=== PATIENT | female | born 1970 | race Caucasian/White ===

== ENCOUNTER → 2016-10-25 | Outpatient (CLI) | payer BC ==
[~2016-10-25] MED LIST: Tramadol PO
[2016-10-25 12:44] LABS: Basophils # (auto) 0 uL; Basophils % (auto) 0.4 % (0.0-2.0); CONDITION Y; Eosinophils # (auto) 0 uL; Eosinophils % (auto) 0.7 % (0.0-7.0); Hematocrit 40.5 % (36.0-46.0); Hemoglobin 13.8 g/dL (12.2-16.2); Lymphocytes # (auto) 1.8 uL; Mean Corpuscular Hemoglobin 30.1 pg (28.0-32.0); Mean Corpuscular Volume 88.7 fL (80.0-100.0); Mean Platelet Volume 6.8 fL (7.4-10.4); Monocytes # (auto) 0.3 uL; Monocytes % (auto) 5.8 % (0.0-12.0); Neutrophils # (auto) 3.5 uL; Neutrophils % (auto) 62.1 % (37.0-80.0); Platelet Count (auto) 439 10^3/uL (140-450); Red Cell Distribution Width 12.9 % (11.6-16.0); White Blood Cell 5.7 10^3/uL (4.4-10.8)
[2016-10-25 13:06] LABS: Urine Bilirubin Negative (Negative); Urine Blood Negative /uL (Negative); Urine Color Yellow (Yellow); Urine Glucose Normal (Normal); Urine Ketone Negative (Negative); Urine Nitrite Negative (Negative); Urine RBC <1 /hpf (0 - 4); Urine Squamous Epithelial Cell FEW /hpf (<5); Urine Urobilinogen Normal (Negative)
[2016-10-25 13:13] LABS: Albumin 3.9 g/dL (3.4-5.0); BUN/Creatinine Ratio 15.7; Bilirubin, Total 0.8 mg/dL (0.2-1.0); Calcium 8.4 mg/dL (8.5-10.1); Potassium 3.9 mmol/L (3.5-5.1); Total Protein 6.7 g/dL (6.4-8.2)
== END | disposition home or self-care (01) ==
LOC: LAB 12:12
PROVIDERS: ATTEND Family Medicine
DX: E78.5 Hyperlipidemia, unspecified (principal)
CPT/HCPCS: 36415; 80053; 80061; 81001; 82306; 82607; 83036; 84443; 85025

== ENCOUNTER → 2018-08-25 | Outpatient (CLI) | payer BC ==
[2018-08-25 09:50] LABS: Basophils # (auto) 0 uL; Basophils % (auto) 0.6 % (0.0-2.0); Eosinophils # (auto) 0 uL; Eosinophils % (auto) 0.6 % (0.0-7.0); Hematocrit 46.2 % (36.0-46.0); Hemoglobin 15.5 g/dL (12.2-16.2); Lymphocytes # (auto) 2.1 uL; Lymphocytes % (auto) 27.4 % (10.0-50.0); Mean Corpuscular Hemoglobin 29.8 pg (28.0-32.0); Mean Corpuscular Hgb Conc. 33.5 g/dL (32.0-36.0); Mean Corpuscular Volume 88.9 fL (80.0-100.0); Monocytes # (auto) 0.4 uL; Monocytes % (auto) 5.3 % (0.0-12.0); Neutrophils % (auto) 66.1 % (37.0-80.0); Nucleated Red Blood Cells % 0.1 %; Platelet Count (auto) 390 10^3/uL (140-450); Red Cell Distribution Width 13.4 % (11.8-14.3); White Blood Cell 7.6 10^3/uL (4.4-10.8)
[2018-08-25 09:54] LABS: Urine Blood Negative /uL (Negative); Urine Specific Gravity 1.009 (1.001-1.035)
[2018-08-25 10:10] LABS: Potassium 4.1 mmol/L (3.5-5.1)
[2018-08-25 10:18] LABS: Albumin 4.3 g/dL (3.4-5.0); BUN/Creatinine Ratio 15.7; Bilirubin, Total 0.9 mg/dL (0.2-1.0); Calcium 8.9 mg/dL (8.5-10.1); Total Protein 7.5 g/dL (6.4-8.2)
== END | disposition home or self-care (01) ==
LOC: LAB 09:10
PROVIDERS: ATTEND Family Medicine
DX: E78.49 Other hyperlipidemia (principal); E66.3 Overweight; E55.9 Vitamin D deficiency, unspecified; Z86.69 Personal history of other diseases of the nervous system and sense organs
CPT/HCPCS: 36415; 80053; 80061; 81003; 82306; 82607; 84443; 85025

== ENCOUNTER → 2018-09-06 | Outpatient (CLI) | payer BC ==
[2018-09-06 10:40] LABS: Follicle Stimulating Hormone 9.77 IU/L (SEE BELOW); Leuteinizing Hormone 4.1 IU/L
== END | disposition home or self-care (01) ==
LOC: LAB 09:16
PROVIDERS: ATTEND Obstetrics & Gynecology
DX: N95.1 Menopausal and female climacteric states (principal)
CPT/HCPCS: 36415; 82670; 83001; 83002; 84403; 84443

== ENCOUNTER → 2020-01-30 | Outpatient (CLI) | payer BC ==
[2020-01-30 10:20] LABS: Follicle Stimulating Hormone 10.61 IU/L (SEE BELOW); Leuteinizing Hormone 5.4 IU/L
[2020-01-30 10:21] LABS: Basophils # (auto) 0 10 ^3/uL (0-0.2); Basophils % (auto) 0.2 % (0.0-2.0); Eosinophils # (auto) 0.1 10 ^3/uL (0-0.8); Eosinophils % (auto) 1.4 % (0.0-7.0); Hematocrit 41.3 % (36.0-46.0); Hemoglobin 14.4 g/dL (12.2-16.2); Lymphocytes # (auto) 1.6 10 ^3/uL (0.4-5.4); Lymphocytes % (auto) 25.5 % (10.0-50.0); Mean Corpuscular Hemoglobin 31.2 pg (28.0-32.0); Mean Corpuscular Hgb Conc. 34.8 g/dL (32.0-36.0); Mean Corpuscular Volume 89.7 fL (80.0-100.0); Monocytes # (auto) 0.4 10 ^3/uL (0-1.3); Monocytes % (auto) 6.4 % (0.0-12.0); Neutrophils # (auto) 4.2 10 ^3/uL (1.6-8.6); Neutrophils % (auto) 66.5 % (37.0-80.0); Platelet Count (auto) 371 10^3/uL (140-450); Red Blood Cells 4.61 10^6/uL (4.0-5.20); Red Cell Distribution Width 12.9 % (11.8-14.3); White Blood Cell 6.3 10^3/uL (4.4-10.8)
== END | disposition home or self-care (01) ==
LOC: LAB 09:32
PROVIDERS: ATTEND Obstetrics & Gynecology
DX: N95.1 Menopausal and female climacteric states (principal); Z87.59 Personal history of other complications of pregnancy, childbirth and the puerperium
CPT/HCPCS: 36415; 82672; 83001; 83002; 84403; 84443; 85025

== ENCOUNTER → 2020-06-12 | Outpatient (CLI) | payer BC ==
[2020-06-12 10:25] LABS: Basophils # (auto) 0 10 ^3/uL (0-0.2); Basophils % (auto) 0.2 % (0.0-2.0); Eosinophils # (auto) 0 10 ^3/uL (0-0.8); Eosinophils % (auto) 0.6 % (0.0-7.0); Hematocrit 41.2 % (36.0-46.0); Hemoglobin 14.3 g/dL (12.2-16.2); Lymphocytes % (auto) 30.2 % (10.0-50.0); Mean Corpuscular Hemoglobin 30.8 pg (28.0-32.0); Mean Corpuscular Hgb Conc. 34.6 g/dL (32.0-36.0); Monocytes # (auto) 0.3 10 ^3/uL (0-1.3); Monocytes % (auto) 4.8 % (0.0-12.0); Neutrophils # (auto) 4.3 10 ^3/uL (1.6-8.6); Neutrophils % (auto) 64.2 % (37.0-80.0); Nucleated Red Blood Cells % 0.1 %; Platelet Count (auto) 416 10^3/uL (140-450); Red Blood Cells 4.63 10^6/uL (4.0-5.20); Red Cell Distribution Width 12.6 % (11.8-14.3); Urine Bacteria NONE SEEN /hpf (None Seen); Urine Blood TRACE /uL (Negative); Urine Specific Gravity 1.015 (1.001-1.035); Urine WBC <1 /hpf (0 - 5); White Blood Cell 6.6 10^3/uL (4.4-10.8)
[2020-06-12 10:52] LABS: Potassium 4.4 mmol/L (3.5-5.1)
[2020-06-12 10:59] LABS: BUN/Creatinine Ratio 17.5; Bilirubin, Total 0.6 mg/dL (0.2-1.0); Calcium 8.3 mg/dL (8.5-10.1); Total Protein 7.4 g/dL (6.4-8.2)
== END | disposition home or self-care (01) ==
LOC: LAB 10:00
PROVIDERS: ATTEND Family Medicine
DX: E66.3 Overweight (principal); E78.49 Other hyperlipidemia; N92.6 Irregular menstruation, unspecified; G43.009 Migraine without aura, not intractable, without status migrainosus
CPT/HCPCS: 36415; 80053; 80061; 81001; 82306; 85025

== ENCOUNTER → 2021-06-03 | Outpatient (CLI) | payer BC ==
[2021-06-03 10:42] LABS: Basophils # (auto) 0 10 ^3/uL (0-0.2); Basophils % (auto) 0.3 % (0.0-2.0); Eosinophils # (auto) 0.1 10 ^3/uL (0-0.8); Eosinophils % (auto) 0.9 % (0.0-7.0); Hematocrit 41.1 % (36.0-46.0); Hemoglobin 14.3 g/dL (12.2-16.2); Lymphocytes # (auto) 1.9 10 ^3/uL (0.4-5.4); Lymphocytes % (auto) 27.5 % (10.0-50.0); Mean Corpuscular Hemoglobin 31.1 pg (28.0-32.0); Mean Corpuscular Hgb Conc. 34.7 g/dL (32.0-36.0); Mean Corpuscular Volume 89.5 fL (80.0-100.0); Monocytes # (auto) 0.4 10 ^3/uL (0-1.3); Monocytes % (auto) 6.1 % (0.0-12.0); Neutrophils # (auto) 4.5 10 ^3/uL (1.6-8.6); Neutrophils % (auto) 65.2 % (37.0-80.0); Nucleated Red Blood Cells % 0.1 %; Potassium 4.3 mmol/L (3.5-5.1); Red Blood Cells 4.59 10^6/uL (4.0-5.20); Red Cell Distribution Width 12.9 % (11.8-14.3); White Blood Cell 6.8 10^3/uL (4.4-10.8)
[2021-06-03 10:53] LABS: Albumin 3.8 g/dL (3.4-5.0); BUN/Creatinine Ratio 19.1; Bilirubin, Total 0.6 mg/dL (0.2-1.0); Calcium 8.9 mg/dL (8.5-10.1); Total Protein 6.9 g/dL (6.4-8.2)
== END | disposition home or self-care (01) ==
LOC: LAB 09:10
PROVIDERS: ATTEND Student in an Organized Health Care Education/Training Program
DX: G43.709 Chronic migraine without aura, not intractable, without status migrainosus (principal); E78.49 Other hyperlipidemia; E55.9 Vitamin D deficiency, unspecified; H18.602 Keratoconus, unspecified, left eye; H33.21 Serous retinal detachment, right eye
CPT/HCPCS: 36415; 80053; 80061; 82306; 84443; 85025

== ENCOUNTER → 2021-06-30 | Outpatient (CLI) | payer BC | END | disposition home or self-care (01) | LOC: LAB 10:32 | PROVIDERS: ATTEND Student in an Organized Health Care Education/Training Program | DX: Z12.11 Encounter for screening for malignant neoplasm of colon (principal) | CPT/HCPCS: 82274 ==

== ENCOUNTER → 2021-09-17 | Day surgery (SDC) | payer BC ==
[2021-09-15 14:35] LABS: Basophils # (auto) 0 10 ^3/uL (0-0.2); Basophils % (auto) 0.3 % (0.0-2.0); Eosinophils # (auto) 0 10 ^3/uL (0-0.8); Eosinophils % (auto) 0.5 % (0.0-7.0); Hematocrit 41.4 % (36.0-46.0); Hemoglobin 13.9 g/dL (12.2-16.2); Lymphocytes # (auto) 1.8 10 ^3/uL (0.4-5.4); Lymphocytes % (auto) 25.1 % (10.0-50.0); Mean Corpuscular Hemoglobin 30.4 pg (28.0-32.0); Mean Corpuscular Hgb Conc. 33.7 g/dL (32.0-36.0); Mean Corpuscular Volume 90.3 fL (80.0-100.0); Monocytes # (auto) 0.4 10 ^3/uL (0-1.3); Monocytes % (auto) 6.1 % (0.0-12.0); Neutrophils # (auto) 4.8 10 ^3/uL (1.6-8.6); Red Blood Cells 4.58 10^6/uL (4.0-5.20); Red Cell Distribution Width 12.6 % (11.8-14.3)
[2021-09-15 14:47] LABS: Urine Amorphous Crystal FEW /hpf (None Seen); Urine Bacteria FEW /hpf (None Seen); Urine Blood Negative /uL (Negative); Urine Mucus FEW (None Seen); Urine Specific Gravity 1.021 (1.001-1.035); Urine WBC 12 /hpf (0 - 5)
[2021-09-15 14:53] LABS: Partial Thromboplastin Time 30.7 sec (23.6-33.0)
[2021-09-15 15:11] LABS: Calcium 8.8 mg/dL (8.5-10.1); Potassium 4.1 mmol/L (3.5-5.1)
[2021-09-15 15:17] LABS: Albumin 3.8 g/dL (3.4-5.0); BUN/Creatinine Ratio 22.2; Bilirubin, Total 0.5 mg/dL (0.2-1.0); Total Protein 7.2 g/dL (6.4-8.2)
[~2021-09-17] VITALS: Ht 157.5 cm; Wt 70.3 kg
[~2021-09-17] MED LIST changes: +BUPIVACAINE W/ EPINEPH 0.25% INJ 50ML MDV ONE; +GABA300C10 PO; +GLYCOPYRROLATE 0.2 MG/ML 1ML VIAL ONE; +HYDROmorphone HCL 2 MG/ML VL/or syr ONE; +IBUP400T22 PO; +KETAMINE HCL 10 ML ONE; +LIDOCAINE W/ EPINEPHRINE 2% INJ 20ML VIAL ONE; +MIDAZOLAM HCL 2MG/2ML 2ml VIAL (1mg/ml) ONE; +MORPHINE SULF PF 5 MG/10 ML VIAL ONE; +ONDANSETRON HCL 4 MG/2 ML VIAL IV PRN; +ONDANSETRON HCL 4 MG/2 ML VIAL ONE; +PROPOFOL 10 MG/ML 20 ML IV ONE; +RIZA10TA22 OR; +ROSU10TA16 PO; -Tramadol PO; +VANCOMYCIN HCL 1000 MG VL ONE; +ceFAZolin 1GM/50ML 100 ML IV ONE; +fentaNYL CITRATE 100 MCG/2 ML VL ONE
[2021-09-17] MEDS: HYDROmorphone HCL 2 MG/ML VL/or syr IV PRN ×2 (10:58→11:08)
[2021-09-17 11:35] VITALS: BP 132/82
== END | disposition home or self-care (01) ==
LOC: SUR 07:15
PROVIDERS: ATTEND Anesthesiology Pain Medicine
DX: M48.062 Spinal stenosis, lumbar region with neurogenic claudication (principal); G43.909 Migraine, unspecified, not intractable, without status migrainosus; E78.5 Hyperlipidemia, unspecified; Z98.891 History of uterine scar from previous surgery; Z98.890 Other specified postprocedural states; Z79.899 Other long term (current) drug therapy; Z20.822 Contact with and (suspected) exposure to COVID-19; Z91.048 Other nonmedicinal substance allergy status
CPT/HCPCS: 22869; 22870; 36415; 72100; 76000; 80053; 81001; 85025; 85610; 85730; 87086; 87088; 87186; J0690; J1170; J2250; J2270; J2405; J2704; J3010; J3370; U0003

== ENCOUNTER → 2022-02-23 | Outpatient (CLI) | payer BC ==
[~2022-02-23] MED LIST changes: -BUPIVACAINE W/ EPINEPH 0.25% INJ 50ML MDV ONE; -GLYCOPYRROLATE 0.2 MG/ML 1ML VIAL ONE; -HYDROmorphone HCL 2 MG/ML VL/or syr ONE; -KETAMINE HCL 10 ML ONE; -LIDOCAINE W/ EPINEPHRINE 2% INJ 20ML VIAL ONE; -MIDAZOLAM HCL 2MG/2ML 2ml VIAL (1mg/ml) ONE; -MORPHINE SULF PF 5 MG/10 ML VIAL ONE; -ONDANSETRON HCL 4 MG/2 ML VIAL IV PRN; -ONDANSETRON HCL 4 MG/2 ML VIAL ONE; -PROPOFOL 10 MG/ML 20 ML IV ONE; -VANCOMYCIN HCL 1000 MG VL ONE; -ceFAZolin 1GM/50ML 100 ML IV ONE; -fentaNYL CITRATE 100 MCG/2 ML VL ONE
[2022-02-23 12:16] LABS: Basophils # (auto) 0 10 ^3/uL (0-0.2); Basophils % (auto) 0.8 % (0.0-2.0); Eosinophils # (auto) 0 10 ^3/uL (0-0.8); Eosinophils % (auto) 0.6 % (0.0-7.0); Hematocrit 43.6 % (36.0-46.0); Hemoglobin 14.8 g/dL (12.2-16.2); Lymphocytes # (auto) 1.7 10 ^3/uL (0.4-5.4); Mean Corpuscular Hgb Conc. 33.9 g/dL (32.0-36.0); Mean Corpuscular Volume 88.5 fL (80.0-100.0); Monocytes # (auto) 0.3 10 ^3/uL (0-1.3); Monocytes % (auto) 5.5 % (0.0-12.0); Neutrophils # (auto) 3.5 10 ^3/uL (1.6-8.6); Neutrophils % (auto) 62.1 % (37.0-80.0); Red Blood Cells 4.92 10^6/uL (4.0-5.20); White Blood Cell 5.6 10^3/uL (4.4-10.8)
[2022-02-23 13:25] LABS: Leuteinizing Hormone 4.9 IU/L
[2022-02-23 13:26] LABS: Follicle Stimulating Hormone 16.66 IU/L (SEE BELOW)
== END | disposition home or self-care (01) ==
LOC: LAB 11:58
PROVIDERS: ATTEND Obstetrics & Gynecology
DX: N95.1 Menopausal and female climacteric states (principal); Z79.899 Other long term (current) drug therapy
CPT/HCPCS: 36415; 82670; 83001; 83002; 84403; 84443; 85025

== ENCOUNTER → 2022-06-14 | Outpatient (CLI) | payer BC ==
[2022-06-14 09:52] LABS: Basophils # (auto) 0 10 ^3/uL (0-0.2); Basophils % (auto) 0.2 % (0.0-2.0); Eosinophils # (auto) 0.1 10 ^3/uL (0-0.8); Eosinophils % (auto) 0.8 % (0.0-7.0); Hematocrit 42.2 % (36.0-46.0); Hemoglobin 14.8 g/dL (12.2-16.2); Lymphocytes # (auto) 2.4 10 ^3/uL (0.4-5.4); Mean Corpuscular Hemoglobin 31.1 pg (28.0-32.0); Mean Corpuscular Hgb Conc. 35.1 g/dL (32.0-36.0); Mean Corpuscular Volume 88.6 fL (80.0-100.0); Monocytes # (auto) 0.4 10 ^3/uL (0-1.3); Monocytes % (auto) 5.8 % (0.0-12.0); Neutrophils # (auto) 4.8 10 ^3/uL (1.6-8.6); Neutrophils % (auto) 62.2 % (37.0-80.0); Nucleated Red Blood Cells % 0.2 %; Red Blood Cells 4.76 10^6/uL (4.0-5.20); Red Cell Distribution Width 12.7 % (11.8-14.3); White Blood Cell 7.7 10^3/uL (4.4-10.8)
[2022-06-14 10:13] LABS: Potassium 4.5 mmol/L (3.5-5.1)
[2022-06-14 10:24] LABS: Albumin 4.2 g/dL (3.4-5.0); Bilirubin, Total 0.7 mg/dL (0.2-1.0); Calcium 8.9 mg/dL (8.5-10.1); Total Protein 7.1 g/dL (6.4-8.2)
== END | disposition home or self-care (01) ==
LOC: LAB 09:01
PROVIDERS: ATTEND Student in an Organized Health Care Education/Training Program
DX: E78.49 Other hyperlipidemia (principal); G43.709 Chronic migraine without aura, not intractable, without status migrainosus; H18.602 Keratoconus, unspecified, left eye
CPT/HCPCS: 36415; 80053; 80061; 85025

== ENCOUNTER → 2022-06-28 | Outpatient (CLI) | payer BC | END | disposition home or self-care (01) | LOC: LAB 13:13 | PROVIDERS: ATTEND Student in an Organized Health Care Education/Training Program | DX: Z12.11 Encounter for screening for malignant neoplasm of colon (principal) | CPT/HCPCS: 82274 ==

== ENCOUNTER → 2023-03-11 | Outpatient (CLI) | payer BC ==
[~2023-03-11] MED LIST changes: +GABA-1250 PO; -GABA300C10 PO; +IBUP-1453 PO; -IBUP400T22 PO
[2023-03-11 11:37] LABS: Follicle Stimulating Hormone 32.93 IU/L (SEE BELOW)
== END | disposition home or self-care (01) ==
LOC: LAB 10:31
PROVIDERS: ATTEND Obstetrics & Gynecology
DX: N95.1 Menopausal and female climacteric states (principal)
CPT/HCPCS: 36415; 82670; 83001; 83002; 84403; 84443

== ENCOUNTER → 2023-09-06 | Outpatient (CLI) | payer BC ==
[2023-09-06 16:05] LABS: Basophils # (auto) 0 10 ^3/uL (0-0.2); Basophils % (auto) 0.3 % (0.0-2.0); Eosinophils # (auto) 0.1 10 ^3/uL (0-0.8); Eosinophils % (auto) 0.8 % (0.0-7.0); Hematocrit 43.7 % (36.0-46.0); Hemoglobin 14.2 g/dL (12.2-16.2); Lymphocytes # (auto) 2.1 10 ^3/uL (0.4-5.4); Lymphocytes % (auto) 27.1 % (10.0-50.0); Mean Corpuscular Hemoglobin 29.3 pg (28.0-32.0); Mean Corpuscular Hgb Conc. 32.6 g/dL (32.0-36.0); Mean Corpuscular Volume 89.8 fL (80.0-100.0); Monocytes # (auto) 0.5 10 ^3/uL (0-1.3); Monocytes % (auto) 6.2 % (0.0-12.0); Neutrophils # (auto) 5.1 10 ^3/uL (1.6-8.6); Neutrophils % (auto) 65.6 % (37.0-80.0); Red Blood Cells 4.87 10^6/uL (4.0-5.20); Red Cell Distribution Width 13.8 % (11.8-14.3); White Blood Cell 7.8 10^3/uL (4.4-10.8)
[2023-09-06 16:23] LABS: Alanine Aminotransferase 26 U/L (7-40); Albumin 4.6 g/dL (3.2-4.8); Alkaline Phosphatase 75 U/L (46-116); Anion Gap 4 (5-15); Aspartate Aminotransferase 19 U/L (13-40); BUN/Creatinine Ratio 18.3 (10.0-20.0); Blood Urea Nitrogen 17 mg/dL (9-23); Calcium 9.8 mg/dL (8.5-10.1); Carbon Dioxide 29 mmol/L (20-30); Chloride 107 mmol/L (98-107); Glucose 95 mg/dL (74-106); Potassium 4.4 mmol/L (3.5-5.1); Sodium 140 mmol/L (136-145)
[2023-09-06 16:24] LABS: Bilirubin, Total 0.5 mg/dL (0.2-1.0); Total Protein 6.8 g/dL (5.7-8.2)
== END | disposition home or self-care (01) ==
LOC: LAB 15:39
PROVIDERS: ATTEND Student in an Organized Health Care Education/Training Program
DX: E78.2 Mixed hyperlipidemia (principal); G43.709 Chronic migraine without aura, not intractable, without status migrainosus
CPT/HCPCS: 36415; 80053; 82274; 85025

== ENCOUNTER → 2024-07-09 | Outpatient (CLI) | payer BC ==
[2024-07-09 09:28] LABS: Basophils # (auto) 0 10 ^3/uL (0-0.2); Basophils % (auto) 0.5 % (0.0-2.0); Eosinophils # (auto) 0.1 10 ^3/uL (0-0.8); Eosinophils % (auto) 1.2 % (0.0-7.0); Hematocrit 41.7 % (36.0-46.0); Hemoglobin 14.5 g/dL (12.2-16.2); Lymphocytes # (auto) 2.3 10 ^3/uL (0.4-5.4); Lymphocytes % (auto) 36.7 % (10.0-50.0); Mean Corpuscular Hemoglobin 30.8 pg (28.0-32.0); Mean Corpuscular Hgb Conc. 34.9 g/dL (32.0-36.0); Mean Corpuscular Volume 88.2 fL (80.0-100.0); Monocytes # (auto) 0.4 10 ^3/uL (0-1.3); Monocytes % (auto) 6.5 % (0.0-12.0); Neutrophils # (auto) 3.4 10 ^3/uL (1.6-8.6); Neutrophils % (auto) 55.1 % (37.0-80.0); Platelet Count (auto) 371 10^3/uL (140-450); Red Blood Cells 4.72 10^6/uL (4.0-5.20); Red Cell Distribution Width 13.1 % (11.8-14.3); White Blood Cell 6.2 10^3/uL (4.4-10.8)
[2024-07-09 09:36] LABS: Urine Bacteria FEW /hpf (None Seen); Urine Blood Negative /uL (Negative); Urine Clarity Turbid (Clear); Urine Color Yellow (Yellow); Urine Mucus FEW (None Seen); Urine Protein, UAD Negative (Negative); Urine Specific Gravity 1.016 (1.001-1.035); Urine Squamous Epithelial Cell FEW /hpf (<5); Urine Urobilinogen Normal (Negative); Urine WBC 8 /HPF (0-5)
[2024-07-09 10:31] LABS: Alanine Aminotransferase 33 U/L (7-40); Alkaline Phosphatase 79 U/L (46-116); Anion Gap 8 (5-15); BUN/Creatinine Ratio 23.8 (10.0-20.0); Blood Urea Nitrogen 20 mg/dL (9-23); Calcium 10.2 mg/dL (8.7-10.4); Carbon Dioxide 28 mmol/L (20-31); Chloride 105 mmol/L (98-107); Glucose 90 mg/dL (74-106); Potassium 4.2 mmol/L (3.5-5.1); Sodium 141 mmol/L (136-145); Total Protein 7.3 g/dL (5.7-8.2)
[2024-07-09 10:32] LABS: Aspartate Aminotransferase 22 U/L (13-40)
[2024-07-09 10:33] LABS: Bilirubin, Total 0.8 mg/dL (0.2-1.0); HDL Cholesterol 58 mg/dL (40-59)
[2024-07-09 10:34] LABS: Cholesterol 261 mg/dL (< 200); LDL Cholesterol 180 mg/dL (< 100); Triglycerides 178 mg/dL (< 150)
== END | disposition home or self-care (01) ==
LOC: LAB 08:53
PROVIDERS: ATTEND Nurse Practitioner
DX: I10 Essential (primary) hypertension (principal); E78.5 Hyperlipidemia, unspecified; E03.9 Hypothyroidism, unspecified
CPT/HCPCS: 36415; 80053; 80061; 81001; 83036; 84443; 85025